=== PATIENT | female | born 1975 | race Caucasian/White ===

== ENCOUNTER → 2018-04-23 15:17 | Outpatient (CLI) | payer OTHER, SELFPAY ==
[2018-04-25 11:39] LABS: HPV Reflexed? NOT INDICATED
== END ==
PROVIDERS: Visit Provider Obstetrics & Gynecology
DX: Z12.4 Encounter for screening for malignant neoplasm of cervix (principal)
CPT/HCPCS: 88175; G0145

== ENCOUNTER → 2018-05-16 10:52 | Outpatient (CLI) | payer OTHER, SELFPAY | PROVIDERS: Family Provider Family Medicine; PCP Family Medicine; Visit Provider Obstetrics & Gynecology | DX: Z12.31 Encounter for screening mammogram for malignant neoplasm of breast (principal) | CPT/HCPCS: 77062; 77063; 77067; G0279 ==

== ENCOUNTER → 2018-05-21 08:34 | Outpatient (CLI) | payer OTHER, SELFPAY ==
[2018-05-21 12:43] LABS: Absolute Neutrophil Count 4.5 X10^3/uL (2.0-7.7); Basophil# 0.02 X10^3/uL; Basophil% 0.2 % (0-1); Eosinophil# 0.25 X10^3/uL; Eosinophils% 2.9 % (0-5); Hematocrit 39.7 % (37-47); Hemoglobin 12.3 g/dl (12.0-15.0); Lymphocyte % 37.8 % (19-41); Mean Corpuscular Hgb 26.9 pg (27.0-32.0); Mean Corpuscular Volume 86.7 fL (81-99); Mean Platelet Vol. 9.8 fl (6.2-12.0); Monocyte# 0.61 X10^3/uL; Neutrophil # 4.54 X10^3/uL (2.7-7.7); Neutrophil % 52.1 % (47-70); Platelet Count 361 K/mm3 (150-450); RBC Distribution Width CV 14.6 % (11.6-14.6); RBC Distribution Width SD 46.3 fl (35.1-43.9); Red Blood Count 4.58 M/mm3 (4.2-5.4); White Blood Count 8.7 K/mm3 (4.4-11.0)
[2018-05-21 12:50] LABS: POSITIVE COUNT NO; POSITIVE DIFFERENTIAL NO; POSITIVE MORPHOLOGY NO
[2018-05-21 13:12] LABS: Vitamin B12 316 pg/mL (211-911); Vitamin D,25 Hydroxy 13.4 ng/mL (29.95-100.01)
[2018-05-21 13:18] LABS: BUN 10 mg/dL (7-18); Creatinine, Serum 0.68 mg/dL (0.55-1.02); EST Glomerular Filtration Rate 101 mL/min (>60); Glucose 101 mg/dL (74-106)
[2018-05-21 13:19] LABS: ALB/GLOB Ratio 0.7 RATIO (0.9-2.4); AST(SGOT) 14 U/L (15-37); Alanine Aminotransfer ALT/SGPT 22 U/L (13-56); Albumin, Serum 3.1 g/dL (3.2-5.0); Alkaline Phosphatase 74 U/L (45-117); Anion Gap 11 (5-15); BUN/Creat Ratio 14.7 RATIO (10-20); Calcium,Total 8.3 mg/dL (8.5-10.1); Chloride 108 mmol/L (98-107); Cholesterol 153 mg/dL (200); Est Glom Filt Rate - Afr Amer 122 mL/min (>60); Ferritin 29 ng/mL (8-252); Globulin 4.2 g/dL (2.2-4.2); High Density Lipoprotein 52 mg/dL; Iron 50 ug/dL (50-170); Potassium 4.3 mmol/L (3.5-5.1); Protein, Total 7.3 g/dL (6.4-8.2); Sodium Level 141 mmol/L (136-145); Triglycerides 78 mg/dL; Very Low Density Lipoprotein 16 mg/dL (5-40)
== END ==
PROVIDERS: Family Provider Family Medicine; PCP Family Medicine; Visit Provider Family Medicine
DX: D64.9 Anemia, unspecified (principal); E78.5 Hyperlipidemia, unspecified; E55.9 Vitamin D deficiency, unspecified; E53.8 Deficiency of other specified B group vitamins; R53.83 Other fatigue; Z51.81 Encounter for therapeutic drug level monitoring
CPT/HCPCS: 36415; 80053; 80061; 82306; 82607; 82728; 83540; 85025

== ENCOUNTER → 2018-07-09 08:07 | Outpatient (CLI) | payer OTHER, SELFPAY ==
[2018-07-09 09:36] LABS: Free T3 2.8 pg/mL (2.18-3.98); T4 Free Direct 0.97 ng/dL (0.76-1.46); Thyroid Stim Hormone (TSH) 1.71 uIU/mL (0.358-3.74)
== END ==
PROVIDERS: Family Provider Family Medicine; PCP Family Medicine; Referring Provider Nurse Practitioner; Visit Provider Nurse Practitioner
DX: R53.82 Chronic fatigue, unspecified (principal); R53.81 Other malaise
CPT/HCPCS: 36415; 84439; 84443; 84481

== ENCOUNTER → 2018-07-17 08:05 | Outpatient (CLI) | payer OTHER, SELFPAY ==
--- NOTE | 2018-07-17 08:07 | US_ITS ---
STUDY: THYROID ULTRASOUND REASON FOR EXAM: Female, 42 years old. Enlarged thyroid. TECHNIQUE: Ultrasound evaluation of the thyroid was performed with real-time and static smith-scale imaging. COMPARISON: None. FINDINGS: RIGHT LOBE: The right lobe of the thyroid gland measures 4.8 x 1.9 x 2.2 cm. There is a homogeneous echotexture. There is a 4 mm hypoechoic nodule. LEFT LOBE: The left lobe of the thyroid gland measures 4.0 x 1.2 x 1.2 cm. There is a homogeneous echotexture. There are no demonstrated solid, cystic or complex lesions. ISTHMUS: The isthmus measures 4 mm . The regional lymph nodes are normal. US/Thyroid IMPRESSION: No significant abnormality. Normal size thyroid gland. No significant nodules are seen. Electronically Signed: Low Obregon MD at 15:25 EDT , Service support ,
== END ==
PROVIDERS: Family Provider Family Medicine; PCP Family Medicine; Referring Provider Nurse Practitioner; Visit Provider Nurse Practitioner
DX: R94.6 Abnormal results of thyroid function studies (principal)
CPT/HCPCS: 76536

== ENCOUNTER → 2019-02-26 13:42 | Outpatient (CLI) | payer OTHER, SELFPAY ==
[2019-02-26 15:38] LABS: Absolute Lymphocyte Count 3.45 X10^3/ul (0.83-4.51); Absolute Neutrophil Count 5.3 X10^3/uL (2.0-7.7); Basophil# 0.03 X10^3/uL; Basophil% 0.3 % (0-1); Eosinophil# 0.21 X10^3/uL; Eosinophils% 2.2 % (0-5); Hematocrit 40.5 % (37-47); Hemoglobin 13.4 g/dl (12.0-15.0); Lymphocyte # 3.45 X10^3/ul (4.0); Lymphocyte % 35.5 % (19-41); Mean Corp Hgb Conc 33.1 g/gl (32-36); Mean Corpuscular Hgb 27.5 pg (27.0-32.0); Mean Corpuscular Volume 83.2 fL (81-99); Mean Platelet Vol. 10.1 fl (6.2-12.0); Monocyte% 7.2 % (0-10); Neutrophil # 5.31 X10^3/uL (2.7-7.7); Neutrophil % 54.6 % (47-70); Platelet Count 318 K/mm3 (150-450); RBC Distribution Width CV 14.2 % (11.6-14.6); RBC Distribution Width SD 42.4 fl (35.1-43.9); Red Blood Count 4.87 M/mm3 (4.2-5.4); White Blood Count 9.7 K/mm3 (4.4-11.0)
[2019-02-26 15:40] LABS: POSITIVE COUNT NO; POSITIVE DIFFERENTIAL NO; POSITIVE MORPHOLOGY NO
[2019-02-26 16:11] LABS: Hemoglobin A1c 6.9 % (4.2-6.3)
[2019-02-26 16:14] LABS: ALB/GLOB Ratio 0.8 RATIO (0.9-2.4); AST(SGOT) 11 U/L (15-37); Alanine Aminotransfer ALT/SGPT 22 U/L (13-56); Albumin, Serum 3.3 g/dL (3.2-5.0); Alkaline Phosphatase 89 U/L (45-117); Anion Gap 5 (5-15); BUN 8 mg/dL (7-18); BUN/Creat Ratio 10.3 RATIO (10-20); Calcium,Total 8.6 mg/dL (8.5-10.1); Chloride 106 mmol/L (98-107); Creatinine, Serum 0.78 mg/dL (0.55-1.02); EST Glomerular Filtration Rate 86 mL/min (>60); Est Glom Filt Rate - Afr Amer 104 mL/min (>60); Globulin 4.4 g/dL (2.2-4.2); Glucose 119 mg/dL (74-106); Iron 55 ug/dL (50-170); Potassium 3.6 mmol/L (3.5-5.1); Protein, Total 7.7 g/dL (6.4-8.2); Sodium Level 136 mmol/L (136-145)
[2019-02-26 16:19] LABS: Vitamin B12 990 pg/mL (211-911)
== END ==
PROVIDERS: Family Provider Family Medicine; PCP Family Medicine; Visit Provider Family Medicine
DX: D64.9 Anemia, unspecified (principal); E16.2 Hypoglycemia, unspecified; R53.83 Other fatigue; E55.9 Vitamin D deficiency, unspecified; E53.8 Deficiency of other specified B group vitamins
CPT/HCPCS: 36415; 80053; 82306; 82607; 83036; 83540; 85025

== ENCOUNTER → 2019-03-27 10:50 | Outpatient (CLI) | payer OTHER, SELFPAY ==
--- NOTE | 2019-03-27 10:53 | ECHOD_ITS ---
Reason For Study: EDEMA/PALPS Procedure Exam performed in department. Left Ventricle Normal LV size. Left ventricular systolic function is normal. The estimated ejection fraction is 60 %. No evidence for diastolic dysfunction. No regional wall motion abnormalities noted. Right Ventricle Normal RV size. Normal systolic function. Atria Normal left atrium. Normal right atrium. Mitral Valve Normal mitral valve. Tricuspid Valve Normal tricuspid valve. Mild (1+) tricuspid valve insufficiency. Pulmonary artery systolic pressure is 32 mmHg. Aortic Valve Normal aortic valve. Mild (1+) eccentric aortic valve insufficiency. Pulmonic Valve Normal pulmonic valve. Great Vessels Normal aortic root. The pulmonary artery is normal size. Normal inferior vena cava. Pericardium/Pleural No pericardial effusion. MMode/2D Measurements & Calculations LVIDd: 4.5 cm IVSd: 1.3 cm LVOT diam: 2.1 cm LVIDs: 3.1 cm LVPWd: 1.1 cm LVOT area: 3.5 cm2 RVDd: 4.3 cm FS: 31.6 % Ao root diam: 3.8 cm LAV(MOD-bp): 67.7 ml EDV(MOD-sp4): 116.1 ml LAV(MOD-bp) Indexed: 25.5 ml/m2 ESV(MOD-sp4): 44.2 ml LAV(MOD-sp2): 69.0 ml EF(MOD-sp4): 61.9 % LAV(MOD-sp4): 67.5 ml EDV(MOD-sp2): 134.9 ml SV(MOD-sp4): 71.9 ml SV(MOD-sp2): 92.0 ml EF(MOD-sp2): 68.2 % LA A4 area: 21.8 cm2 LA dimension(2D): 4.0 cm RA A4 area: 16.9 cm2 Time Measurements MV dec time: 0.20 sec Doppler Measurements & Calculations MV E max evan: 107.7 cm/sec Lat Peak E' Evan: 13.8 cm/sec Med Peak E' Evan: 9.1 cm/sec MV A max evan: 90.2 cm/sec E/E' lat: 7.8 E/E' med: 11.8 MV E/A: 1.2 Ao V2 max: 203.1 cm/sec AI max evan: 422.4 cm/sec LV V1 max: 153.6 cm/sec Ao max P.6 mmHg AI max P.5 mmHg LV V1 max P.4 mmHg Ao V2 mean: 144.7 cm/sec AI dec slope: 162.6 cm/sec2 LV V1 mean P.8 mmHg Ao mean P.2 mmHg AI P1/2t: 760.9 msec LV V1 mean: 116.8 cm/sec Ao V2 VTI: 40.0 cm LV V1 VTI: 32.8 cm ZAHRA(I,D): 2.9 cm2 ZAHRA(V,D): 2.6 cm2 SV(LVOT): 114.1 ml PA V2 max: 162.3 cm/sec TR max evan: 261.5 cm/sec TR max P.4 mmHg Interpretation Summary Mild (1+) eccentric aortic valve insufficiency. Normal LV size. Left ventricular systolic function is normal. The estimated ejection fraction is 60 %. No evidence for diastolic dysfunction. Ordering Physician: Alexia Bolaños Referring Physician: Alexia Bolaños Performed By: Griselda Merino, KRISTEN, RVT
== END ==
PROVIDERS: Family Provider Family Medicine; PCP Family Medicine; Referring Provider Family Medicine; Visit Provider Family Medicine
DX: R00.2 Palpitations (principal); R60.9 Edema, unspecified
CPT/HCPCS: 93306

== ENCOUNTER → 2019-05-20 10:31 | Outpatient (CLI) | payer OTHER, SELFPAY ==
--- NOTE | 2019-05-20 10:33 | BI_ITS ---
MAMMOGRAPHY - BILATERAL SCREENING REASON FOR EXAM: Female, 43 years old. Routine annual screening examination. PERTINENT HISTORY: Aunt with breast cancer. TECHNIQUE: Digital bilateral breast prachi (3D mammographic acquisition) in the CC and MLO projections. 2-D mediolateral oblique (MLO) and craniocaudad (CC) views of both breasts were obtained. CAD: Full Field Digital Mammography with Computer Added Detection was performed. COMPARISON: Comparison is made with prior study dated May 16, 2018 and March 01, 2017. FINDINGS: Breast Composition: The breasts are almost entirely fatty. There are no dominant masses or suspicious calcifications. Stable benign-appearing bilateral axillary lymph nodes. No other significant abnormalities are identified. There has been no significant change since the prior study. BI/SCREEN MAMM (CAD) W/PRACHI BILAT IMPRESSION: Stable bilateral screening mammogram. Yearly follow-up mammogram recommended. (A) ASSESSMENT CATEGORY: BIRADS Category 2: Benign. A letter regarding these results will be sent to the patient by the facility within 30 days. Approximately 10% of breast cancers are not detected by mammography. A normal mammogram should not delay biopsy of a clinically suspicious abnormality. [id number] Electronically Signed: Niraj Chun, at 12:38 EDT , Service support ,
== END ==
PROVIDERS: Family Provider Family Medicine; PCP Family Medicine; Referring Provider Obstetrics & Gynecology; Visit Provider Obstetrics & Gynecology
DX: Z12.31 Encounter for screening mammogram for malignant neoplasm of breast (principal)
CPT/HCPCS: 77063; 77067

== ENCOUNTER → 2020-02-25 | Outpatient (CLI) | payer OTHER, SELFPAY ==
[2020-02-25 15:54] LABS: ALB/GLOB Ratio 0.8 RATIO (0.9-2.4); AST(SGOT) 11 U/L (15-37); Alanine Aminotransfer ALT/SGPT 23 U/L (13-56); Albumin, Serum 3.2 g/dL (3.2-5.0); Alkaline Phosphatase 87 U/L (45-117); Anion Gap 11 (5-15); BUN 9 mg/dL (7-18); BUN/Creat Ratio 13.1 RATIO (10-20); CPK Total, Creatine Kinase 80 U/L (26-192); Calcium,Total 8.7 mg/dL (8.5-10.1); Chloride 106 mmol/L (98-107); Creatinine, Serum 0.68 mg/dL (0.55-1.02); EST Glomerular Filtration Rate 99 mL/min (>60); Erythrocyte Sedimentation Rate 24 mm/hr (0-20); Est Glom Filt Rate - Afr Amer 120 mL/min (>60); Globulin 4.2 g/dL (2.2-4.2); Glucose 134 mg/dL (74-106); Potassium 3.8 mmol/L (3.5-5.1); Protein, Total 7.4 g/dL (6.4-8.2); Rheumatoid Factor < 10.0 IU/mL (<15); Sodium Level 140 mmol/L (136-145)
[2020-02-29 14:08] LABS: Anti-Centromere B Ab <0.2 AI (0.0-0.9); Anti-Chromatin <0.2 AI (0.0-0.9); Anti-Jo <0.2 AI (0.0-0.9); Anti-Scleroderma-70 AB <0.2 AI (0.0-0.9); RNP Ab 0.2 AI (0.0-0.9); SJOGREN'S Anti-SS-A test < 0.2 AI (0.0-0.9); SJOGREN'S Anti-SS-B test < 0.2 AI (0.0-0.9); Smith Ab <0.2 AI (0.0-0.9)
[2020-02-29 20:42] LABS: Anti-dsDNA Ab 6 IU/mL (0-9)
[2020-03-01 03:06] LABS: Cytoplasmic Ab (C-ANCA) <1:20 titer (Neg:<1:20)
[2020-03-01 04:03] LABS: CCP IgG Antibodies 5 units (0-19); Perinuclear Ab (P-ANCA) <1:20 titer (Neg:<1:20)
== END | disposition home or self-care (01) ==
LOC: BFHLAB 13:46
PROVIDERS: PCP Family Medicine; Visit Provider Family Medicine
DX: M79.10 Myalgia, unspecified site (principal); M25.50 Pain in unspecified joint; J34.81 Nasal mucositis (ulcerative); R53.83 Other fatigue; Z51.81 Encounter for therapeutic drug level monitoring
CPT/HCPCS: 36415; 80053; 82550; 85652; 86140; 86200; 86225; 86235; 86256; 86431

== ENCOUNTER → 2020-06-01 12:57 | Outpatient (CLI) | payer OTHER, SELFPAY ==
--- NOTE | 2020-06-01 12:58 | BI_ITS ---
MAMMOGRAPHY - BILATERAL SCREENING REASON FOR EXAM: Female, 44 years old. Routine annual screening examination. PERTINENT HISTORY: Aunt with breast cancer. TECHNIQUE: Digital bilateral breast prachi (3D mammographic acquisition) in the CC and MLO projections. 2-D mediolateral oblique (MLO) and craniocaudad (CC) views of both breasts were obtained. CAD: Full Field Digital Mammography with Computer Added Detection was performed. COMPARISON: Comparison is made with prior study dated 05/20/2019 and 05/16/2018. FINDINGS: Breast Composition: The breasts are almost entirely fatty. There are no dominant masses or suspicious calcifications. No other significant abnormalities are identified. There has been no significant change since the prior study. BI/SCREEN MAMM (CAD) W/PRACHI BILAT IMPRESSION: Stable bilateral screening mammogram. Yearly follow-up mammogram recommended. (A) ASSESSMENT CATEGORY: BIRADS Category 1: Negative. A letter regarding these results will be sent to the patient by the facility within 30 days. Approximately 10% of breast cancers are not detected by mammography. A normal mammogram should not delay biopsy of a clinically suspicious abnormality. [id number] Electronically Signed: Niraj Chun, at 14:07 EDT , Service support ,
== END ==
PROVIDERS: PCP Family Medicine; Referring Provider Obstetrics & Gynecology; Visit Provider Obstetrics & Gynecology
DX: Z12.31 Encounter for screening mammogram for malignant neoplasm of breast (principal); Z80.3 Family history of malignant neoplasm of breast
CPT/HCPCS: 77063; 77067

== ENCOUNTER 2020-12-02 13:48 | Outpatient (RCR) | payer OTHER, SELFPAY ==
[2020-12-02] MEDS: COVID-19 VACC, MRNA(PFIZER)/PF 30 MCG/0.3 ML SYRINGE IM (16:21)
[2020-12-23] MEDS: COVID-19 VACC, MRNA(PFIZER)/PF 30 MCG/0.3 ML SYRINGE IM (11:07)
== END 2020-12-02 23:59 ==
LOC: IMMUN 13:48
PROVIDERS: PCP Family Medicine; Visit Provider Family Medicine
DX: Z23 Encounter for immunization (principal)
CPT/HCPCS: 0001A; 0002A; 91300

== ENCOUNTER → 2021-03-17 14:34 | Outpatient (CLI) | payer OTHER, SELFPAY ==
--- NOTE | 2021-03-17 14:40 | US_ITS ---
STUDY: THYROID ULTRASOUND REASON FOR EXAM: Female, 45 years old. Thyromegaly. TECHNIQUE: Ultrasound evaluation of the thyroid was performed with real-time and static smith-scale imaging. COMPARISON: Comparison is made with prior study dated 07/17/2018. FINDINGS: RIGHT LOBE: The right lobe of the thyroid gland is enlarged and measures 5.2 cm x 1.8 cm x 2 cm. There is a homogeneous echotexture. There are no demonstrated solid, cystic or complex lesions. LEFT LOBE: The left lobe of the thyroid gland measures 3.5 cm x 1.5 cm x 1.4 cm. There is a homogeneous echotexture. There are no demonstrated solid, cystic or complex lesions. ISTHMUS: The isthmus measures 3 mm. The regional lymph nodes are normal. US/Thyroid IMPRESSION: Enlarged right lobe of the thyroid. No focal nodule is seen at this time. Electronically Signed: Niraj Chun MD at 15:13 EDT , Service support ,
== END ==
PROVIDERS: PCP Family Medicine; Referring Provider Family Medicine; Visit Provider Family Medicine
DX: E01.0 Iodine-deficiency related diffuse (endemic) goiter (principal)
CPT/HCPCS: 76536

== ENCOUNTER → 2021-04-24 08:33 | Outpatient (CLI) | payer OTHER, SELFPAY ==
--- NOTE | 2021-04-24 08:37 | RAD_ITS ---
STUDY: AIR CONTRAST UPPER GI SERIES and esophagram REASON FOR EXAM: Female, 45 years old. ODYNOPHAGIA. Tightness in the throat. FLUOROSCOPY TIME (if supplied): (57 seconds) minutes/seconds TECHNIQUE: SINGLE CONTRAST AND AIR CONTRAST FLUOROSCOPIC IMAGES of the esophagus and stomach were obtained. COMPARISON: None. FINDINGS: The cervical esophagus demonstrates normal motility without aspiration. There is no stricture or extrinsic mass effect. No intraluminal polypoid mass is identified. The thoracic esophagus distends well without stricture or mucosal fold thickening. No mucosal ulcerations are identified. There is no extrinsic mass effect. There are no diverticula. No hiatal hernia or gastroesophageal reflux was identified. The patient ingested a 12 mm tablet of barium without any difficulty. The stomach distends well without mucosal fold thickening or mucosal ulceration. There is no intraluminal mass. The duodenal bulb is freely distensible without deformity or ulceration. The duodenal sweep is normal in position and caliber. RAD/Upper GI w/BA Swallow IMPRESSION: Normal air-contrast esophagram and upper GI series. Electronically Signed: Niraj Chun MD at 14:44 EDT , Service support ,
== END ==
PROVIDERS: PCP Family Medicine; Referring Provider Family Medicine; Visit Provider Family Medicine
DX: R13.10 Dysphagia, unspecified (principal); R09.89 Other specified symptoms and signs involving the circulatory and respiratory systems
CPT/HCPCS: 74246

== ENCOUNTER → 2021-05-23 | Outpatient (CLI) | payer OTHER, SELFPAY ==
[2021-05-25 17:32] LABS: HPV APTIMA, High Risk Negative (Negative)
== END | disposition home or self-care (01) ==
LOC: LABSPEC 10:15
PROVIDERS: PCP Family Medicine; Visit Provider Obstetrics & Gynecology
DX: Z12.4 Encounter for screening for malignant neoplasm of cervix (principal)
CPT/HCPCS: 87624; 88175; G0145

== ENCOUNTER → 2021-06-09 13:42 | Outpatient (CLI) | payer OTHER, SELFPAY ==
--- NOTE | 2021-06-09 14:00 | BI_ITS ---
MAMMOGRAPHY - BILATERAL SCREENING REASON FOR EXAM: Female, 45 years old. Routine annual screening examination. PERTINENT HISTORY: Aunt with breast cancer. TECHNIQUE: Digital bilateral breast prachi (3D mammographic acquisition) in the CC and MLO projections. 2-D mediolateral oblique (MLO) and craniocaudad (CC) views of both breasts were obtained. CAD: Full Field Digital Mammography with Computer Added Detection was performed. COMPARISON: Comparison is made with prior study dated 06/01/2020 05/20/2019. FINDINGS: Breast Composition: The breasts are almost entirely fatty. There are no dominant masses or suspicious calcifications. No other significant abnormalities are identified. There has been no significant change since the prior study. BI/SCRN MAMM (CAD)W/PRACHI BILAT IMPRESSION: Stable bilateral screening mammogram. Yearly follow-up mammogram recommended. (A) ASSESSMENT CATEGORY: BIRADS Category 1: Negative. A letter regarding these results will be sent to the patient by the facility within 30 days. Approximately 10% of breast cancers are not detected by mammography. A normal mammogram should not delay biopsy of a clinically suspicious abnormality. [id number] Electronically Signed: Niraj Chun MD at 15:17 EDT , Service support ,
== END ==
PROVIDERS: PCP Family Medicine; Referring Provider Obstetrics & Gynecology; Visit Provider Obstetrics & Gynecology
DX: Z12.31 Encounter for screening mammogram for malignant neoplasm of breast (principal)
CPT/HCPCS: 77063; 77067

== ENCOUNTER → 2022-07-10 | Outpatient (CLI) | payer OTHER, SELFPAY ==
[2022-07-10 12:20] LABS: Absolute Lymphocyte Count 3.75 X10^3/uL (0.83-4.51); Absolute Neutrophil Count 4.9 X10^3/uL (2.0-7.7); Basophil# 0.06 X10^3/uL; Basophil% 0.6 % (0-1); Eosinophil# 0.24 X10^3/uL; Eosinophils% 2.5 % (0-5); Hematocrit 40.4 % (37-47); Hemoglobin 13.1 g/dL (12.0-15.0); Lymphocyte # 3.75 X10^3/ul (0.83-4.51); Lymphocyte % 39.6 % (19-41); Mean Corp Hgb Conc 32.4 g/dL (32-36); Mean Corpuscular Hgb 27.8 pg (27.0-32.0); Mean Corpuscular Volume 85.6 fL (81-99); Mean Platelet Vol. 9.8 fl (6.2-12.0); Monocyte% 5.3 % (0-10); NRBC Flagged by Analyzer 0 % (0-5); Neutrophil # 4.89 X10^3/uL (2.7-7.7); Neutrophil % 51.7 % (47-70); Platelet Count 333 K/mm3 (150-450); RBC Distribution Width CV 14.1 % (11.6-14.6); Red Blood Count 4.72 M/mm3 (4.2-5.4); White Blood Count 9.5 K/mm3 (4.4-11.0)
[2022-07-10 12:37] LABS: Hemoglobin A1c 7.9 % (3.8-5.6)
[2022-07-10 12:49] LABS: AST(SGOT) 14 U/L (15-37); Alanine Aminotransfer ALT/SGPT 25 U/L (13-56); Albumin, Serum 3.4 g/dL (3.2-5.0); Alkaline Phosphatase 94 U/L (45-117); Anion Gap 4 (5-15); BUN 10 mg/dL (7-18); BUN/Creat Ratio 16.2 RATIO (10-20); Bilirubin, Direct 0.08 mg/dL (0.00-0.30); Calcium,Total 8.9 mg/dL (8.5-10.1); Chloride 104 mmol/L (98-107); Cholesterol 156 mg/dL (200); Creatinine, Serum 0.62 mg/dL (0.55-1.02); Creatinine, Urine (random) < 13.00 mg/dL (NO RANGE EST.); EST Glomerular Filtration Rate 110 mL/min (>60); Est Glom Filt Rate - Afr Amer 133 mL/min (>60); Free T3 2.6 pg/mL (2.18-3.98); Glucose 159 mg/dL (74-106); High Density Lipoprotein 50 mg/dL; Microalbumin,Random Urine 5.9 mg/L (NO RANGE EST.); Potassium 4.6 mmol/L (3.5-5.1); Protein, Total 7.4 g/dL (6.4-8.2); Sodium Level 137 mmol/L (136-145); T4 Free Direct 0.92 ng/dL (0.76-1.46); Thyroid Stim Hormone (TSH) 2.15 uIU/mL (0.358-3.74); Triglycerides 95 mg/dL; Very Low Density Lipoprotein 19 mg/dL (5-40)
== END | disposition home or self-care (01) ==
LOC: BFHLAB 08:52
PROVIDERS: PCP Family Medicine; Visit Provider Family Medicine
DX: E03.9 Hypothyroidism, unspecified (principal); E11.9 Type 2 diabetes mellitus without complications; D64.9 Anemia, unspecified; Z51.81 Encounter for therapeutic drug level monitoring; M17.0 Bilateral primary osteoarthritis of knee; Z79.899 Other long term (current) drug therapy
CPT/HCPCS: 36415; 80048; 80061; 80076; 82043; 82570; 83036; 84439; 84443; 84481; 85025

== ENCOUNTER → 2022-09-13 | Outpatient (CLI) | payer OTHER, SELFPAY ==
--- NOTE | 2022-09-13 15:34 | BI_ITS ---
MAMMOGRAPHY - BILATERAL SCREENING REASON FOR EXAM: Female, 46 years old. Routine annual screening examination. PERTINENT HISTORY: Aunt with breast cancer. TECHNIQUE: Digital bilateral breast prachi (3D mammographic acquisition) in the CC and MLO projections. 2-D mediolateral oblique (MLO) and craniocaudad (CC) views of both breasts were obtained. CAD: Full Field Digital Mammography with Computer Added Detection was performed. COMPARISON: 06/09/2021, 06/01/2020. FINDINGS: Breast Composition: The breasts are almost entirely fatty. There are no dominant masses or suspicious calcifications. Stable scattered benign-appearing bilateral breast calcifications. Stable benign-appearing bilateral axillary lymph nodes. No other significant abnormalities are identified. There has been no significant change since the prior study. BI/SCRN MAMM (CAD)W/PRACHI BILAT IMPRESSION: Stable bilateral screening mammogram. Yearly follow-up mammogram recommended. (A) ASSESSMENT CATEGORY: BIRADS Category 2: Benign. A letter regarding these results will be sent to the patient by the facility within 30 days. Approximately 10% of breast cancers are not detected by mammography. A normal mammogram should not delay biopsy of a clinically suspicious abnormality. Electronically Signed: Edmund Pierce, at 15:33 EST ,
== END | disposition home or self-care (01) ==
LOC: OPBI 15:31
PROVIDERS: PCP Family Medicine
DX: Z12.31 Encounter for screening mammogram for malignant neoplasm of breast (principal); Z80.3 Family history of malignant neoplasm of breast
CPT/HCPCS: 77063; 77067

== ENCOUNTER → 2022-11-15 | Outpatient (CLI) | payer OTHER, SELFPAY ==
[2022-11-15 12:49] LABS: Hemoglobin A1c 6.3 % (3.8-5.6)
[2022-11-15 12:58] LABS: ALB/GLOB Ratio 0.8 RATIO (0.9-2.4); AST(SGOT) 14 U/L (15-37); Alanine Aminotransfer ALT/SGPT 26 U/L (13-56); Albumin, Serum 3.3 g/dL (3.2-5.0); Alkaline Phosphatase 71 U/L (45-117); Anion Gap 9 (5-15); BUN 8 mg/dL (7-18); BUN/Creat Ratio 12.2 RATIO (10-20); Calcium,Total 8.5 mg/dL (8.5-10.1); Chloride 107 mmol/L (98-107); Creatinine, Serum 0.66 mg/dL (0.55-1.02); EST Glomerular Filtration Rate 103 mL/min (>60); Est Glom Filt Rate - Afr Amer 124 mL/min (>60); Free T3 2.4 pg/mL (2.18-3.98); Globulin 4.1 g/dL (2.2-4.2); Glucose 119 mg/dL (74-106); Potassium 4.1 mmol/L (3.5-5.1); Protein, Total 7.4 g/dL (6.4-8.2); Sodium Level 137 mmol/L (136-145); T4 Free Direct 1.17 ng/dL (0.76-1.46); Thyroid Stim Hormone (TSH) 1.09 uIU/mL (0.358-3.74)
[2022-11-16 08:30] LABS: H. Pylori Antibody (IgG) 0.11 (0.00-0.79)
== END | disposition home or self-care (01) ==
LOC: BFHLAB 08:33
PROVIDERS: PCP Family Medicine; Visit Provider Family Medicine
DX: E03.9 Hypothyroidism, unspecified (principal); E11.9 Type 2 diabetes mellitus without complications; Z51.81 Encounter for therapeutic drug level monitoring; R14.0 Abdominal distension (gaseous); K20.90 Esophagitis, unspecified without bleeding
CPT/HCPCS: 36415; 80053; 83036; 84439; 84443; 84481; 86677

== ENCOUNTER → 2023-09-27 | Outpatient (CLI) | payer OTHER, SELFPAY ==
--- NOTE | 2023-09-27 11:57 | BI_ITS ---
MAMMOGRAPHY - BILATERAL SCREENING REASON FOR EXAM: Female, 47 years old. Routine annual screening examination. PERTINENT HISTORY: Aunt with breast cancer. TECHNIQUE: Digital bilateral breast prachi (3D mammographic acquisition) in the CC and MLO projections. 2-D mediolateral oblique (MLO) and craniocaudad (CC) views of both breasts were obtained. CAD: Full Field Digital Mammography with Computer Added Detection was performed. COMPARISON: Comparison is made with prior study dated September 13, 2022 and June 09, 2021. FINDINGS: Breast Composition: The breasts are almost entirely fatty. There are no dominant masses or suspicious calcifications. No other significant abnormalities are identified. There has been no significant change since the prior study. BI/SCRN MAMM (CAD)W/PRACHI BILAT IMPRESSION: Stable bilateral screening mammogram. Yearly follow-up mammogram recommended. (A) ASSESSMENT CATEGORY: BIRADS Category 1: Negative. A letter regarding these results will be sent to the patient by the facility within 30 days. Approximately 10% of breast cancers are not detected by mammography. A normal mammogram should not delay biopsy of a clinically suspicious abnormality. [id number] Electronically Signed: Niraj Chun MD at 12:51 EST ,
== END | disposition home or self-care (01) ==
LOC: OPBI 11:54
PROVIDERS: PCP Family Medicine; Referring Provider Nurse Practitioner Women's Health; Visit Provider Nurse Practitioner Women's Health
DX: Z12.31 Encounter for screening mammogram for malignant neoplasm of breast (principal)
CPT/HCPCS: 77063; 77067

== ENCOUNTER → 2024-12-21 | Outpatient (CLI) | payer OTHER, SELFPAY ==
--- NOTE | 2024-12-21 15:41 | BI_ITS ---
EXAM: SCRN MAMM (CAD)W/PRACHI BILAT 12/21/2024 CLINICAL HISTORY: F, Age 49 y/o , SCREENING TECHNIQUE: Bilateral screening digital breast tomosynthesis with 2D and 3D images. Computer aided detection. COMPARISON: Prior exam(s) dated 09/27/2023, 09/13/2022. FINDINGS: TISSUE DENSITY: The breast tissue is almost entirely fatty. Bilateral Breast Mammographic Findings: No significant masses, calcifications or other abnormalities are identified. BI/SCRN MAMM (CAD)W/PRACHI BILAT IMPRESSION: Right Breast: BIRADS 1 NEGATIVE. Left Breast: BIRADS 1 NEGATIVE. OVERALL FINAL ASSESSMENT: BIRADS 1 NEGATIVE. RECOMMENDATION: Routine annual follow-up in 1 Year A letter with findings and recommendations will be mailed to the patient. Reading Location: [id number]
== END | disposition home or self-care (01) ==
LOC: OPBI 15:39
PROVIDERS: PCP Family Medicine; Referring Provider Obstetrics & Gynecology; Visit Provider Obstetrics & Gynecology
DX: Z12.31 Encounter for screening mammogram for malignant neoplasm of breast (principal)
CPT/HCPCS: 77063; 77067